=== PATIENT | female | born 1965 | race African-American/Black ===

== ENCOUNTER 2017-09-28 23:06 | Emergency (ER) | payer OTHER ==
[2017-09-28 23:11] VITALS: BP 142/88; PULSE 80; TEMP 97.6; BMI 28.6
--- NOTE | 2017-09-28 23:51 | PDOC ---
History of Present Illness - General Chief Complaint: Injury Stated Complaint: LT FOOT INJURY Time Seen by Provider: 09/28/17 23:22 History Source: Patient Exam Limitations: No Limitations - History of Present Illness Initial Comments: 09/28/17 23:47 Best Contact: PCP: None Pmhx: None Pshx: Denies Allergies: NKDA FH:0 Social Hx: Cigarettes/ 0 Alcohol/ social Drugs/0 LMP:n/a 51-year-old female presents to the ER complaining of pain to the left foot. Patient states she misstepped while descending a flight of stairs causing her to twist her left foot. Pain is described as 5/10 dull nonradiating intermittent discomfort which is exacerbated on weight-bear and alleviated while having it elevated. Patient denies any head/neck or back pain/injuries, chest pain, shortness of breath, extremity numbness or tingling sensation. Past History - Past Medical History Allergies/Adverse Reactions: Allergies Allergy/AdvReac Type Severity Reaction Status Date / Time Penicillins Allergy Verified 09/28/17 23:10 COPD: No - Suicide/Smoking/Psychosocial Hx Smoking History: Current every day smoker Number of Cigarettes Smoked Daily: 5 Information on smoking cessation initiated: Yes 'Breaking Loose' booklet given: 09/28/17 Review of Systems - Review of Systems Able to Perform ROS?: Yes Comments:: 09/28/17 23:49 CONSTITUTIONAL: Absent: fever, chills, diaphoresis, generalized weakness, malaise, loss of appetite MUSCULOSKELETAL: +left foot pain/dorsal Absent: myalgia, arthralgia, joint swelling SKIN: Absent: rash, itching, pallor Is the patient limited French proficient: No *Physical Exam - Vital Signs Last Vital Signs Temp Pulse Resp BP Pulse Ox 97.6 F 80 18 142/88 100 09/28/17 23:07 09/28/17 23:07 09/28/17 23:07 09/28/17 23:07 09/28/17 23:07 - Physical Exam Comments: 09/28/17 23:49 GENERAL: Well developed, well nourished. Awake and alert. No acute distress. MUSCULOSKELETAL Left foot +swelling to mid dorsum 2 +pedal pulse neg obv deformities Neg pain to base of 5th mt Left ankle F.R>O.M. neg pain on palp achilles intact Normal range of motion at all joints. No bony deformities or tenderness. No CVA tenderness. EXTREMITIES: No cyanosis. No clubbing. No edema. No calf tenderness. SKIN: Warm and dry. Normal capillary refill. No rashes. No jaundice. ED Treatment Course - RADIOLOGY Radiology Studies Ordered: Category Date Time Status FOOT-LEFT [RAD] Stat Radiology 09/28/17 23:14 Taken Radiograph Interpretation: 09/28/17 23:53 Xray left foot; neg for obv fx/dislocations Progress Note - Progress Note Progress Note: natalee wrap to left foot pt is on her own wheelchair *DC/Admit/Observation/Transfer Diagnosis at time of Disposition: Sprain of foot, left Qualifiers: Encounter type: initial encounter Qualified Code(s): S93.602A - Unspecified sprain of left foot, initial encounter - Discharge Dispostion Disposition: HOME Condition at time of disposition: Stable Decision to Admit order: No - Referrals Referrals: Mian Li MD [Staff Physician] - - Patient Instructions Printed Discharge Instructions: DI for Foot Sprain Additional Instructions: Ice; 20 mins on alternating with 20 mins off for 48 hours while awake. Rest Elevate Follow up with your orthopedic surgeon or the one listed on the discharge form. Return to the ER for severe/persistent/worsening symptoms, extremity numbness/ tingling sensation. - Post Discharge Activity
== END 2017-09-29 00:39 | disposition home or self-care (01) ==
LOC: JER 23:06 → JERFT 23:06
DX: S93.602A Unspecified sprain of left foot, initial encounter (principal); W10.9XXA Fall (on) (from) unspecified stairs and steps, initial encounter; Y93.89 Activity, other specified; Y92.9 Unspecified place or not applicable; Z99.89 Dependence on other enabling machines and devices
CPT/HCPCS: 73630-TC-LT; 99281-25